=== PATIENT | male | born 1945 | race Caucasian/White ===

== ENCOUNTER 2017-04-08 06:23 | Day surgery (SDC) | payer OTHER ==
[~2017-04-08] VITALS: Ht 180.3 cm; Wt 88.0 kg
[~2017-04-08 06:23] MED LIST: ALPR0.255 PO; AMLO10TA2 PO; CLON1TAB4 PO; HYDR-3989 PO; LISI-621 PO; MELO-273 PO; METO50TA5 PO; SERT100T PO; WARF3TAB6 PO
--- OUTSIDE RECORDS SUMMARY | 2017-04-08 06:26 | XMS REPORT ---
Author Author Zeyad Becerra Organization [facility] Address [address] [place] [address] Care Team Providers Care Pumper Head Name Role Phone Hernan, Zeyad Unavailable [phone] PROBLEMS Type Condition ICD9-CM Code [id number] Code Onset Dates Condition Status SNOMED Code Problem Carotid arterial disease I77.9 Active 033291101 Problem CVA (cerebral vascular accident) I63.9 Active 716435123 Problem HTN (hypertension) I10 Active 24094442 Problem Episodic atrial fibrillation I48.0 Active 00701974 Problem COPD (chronic obstructive pulmonary disease) J44.9 Active 88710334 Problem Chronic anticoagulation Z79.01 Active 545941826 Problem Dyslipidemia (high LDL; low HDL) E78.4 Active [id number] ALLERGIES Unknown Allergies SOCIAL HISTORY No smoking Hx information available PLAN OF CARE VITAL SIGNS MEDICATIONS Unknown Medications RESULTS No Results PROCEDURES No Known procedures IMMUNIZATIONS No Known Immunizations
--- OUTSIDE RECORDS SUMMARY | 2017-04-08 06:27 | XMS REPORT | Continuity of Care Document ---
Author Author [facility] Organization [facility] Address Unknown Phone Unavailable Allergies Active Description Code Type Severity Reaction Onset Reported/Identified Relationship to Patient Clinical Status Yes No Known Allergies [id number] Unknown N/A 02/11/2017 Medications Medication Packaging Start Date Stop Date Route Dosage Sig DOCUSATE SODIUM 02/12/2017 02/13/2017 BIDPRN ACETAMINOPHEN 02/12/2017 02/13/2017 Q4HPRN ACETAMINOPHEN 02/12/2017 02/13/2017 Q4HPRN ALUM-MAG HYDROXIDE-SIMETH 02/12/2017 02/13/2017 Q4HPRN MAGNESIUM HYDROXIDE 02/12/2017 02/13/2017 HSPRN HYDROCODONE-ACET 5-325MG 02/12/2017 02/13/2017 Q3HPRN ONDANSETRON HCL 02/12/2017 02/13/2017 Q6HPRN SODIUM CHLORIDE 0.9 % 02/12/2017 02/13/2017 PRNIV SODIUM CHLORIDE 0.9% 02/12/2017 02/13/2017 PRNIV METOCLOPRAMIDE 02/12/2017 02/13/2017 Q6HPRN MORPHINE 02/12/2017 02/13/2017 [id number] HYDROcodone-ACET 5-325MG 02/12/2017 02/12/2017 Q4-6HPRN ALPRAZolam 02/12/2017 02/13/2017 TIDPRN PRAMIPEXOLE 02/12/2017 02/13/2017 Q8HPRN GLYCOPYRROLATE 02/12/2017 02/12/2017 ONCE LISINOPRIL 02/12/2017 02/13/2017 QD MELOXICAM 02/12/2017 02/13/2017 BID DOCUSATE SODIUM 02/12/2017 02/13/2017 QD METOPROLOL TARTRATE 02/12/2017 02/13/2017 BID amLODIPine 02/12/2017 02/13/2017 QD ASPIRIN, BUFFERED 02/12/2017 02/13/2017 QD buPROPion HCL 02/12/2017 02/13/2017 BID ALBUMIN, HUMAN 5% 250ML 02/12/2017 02/12/2017 ONCE CEFAZOLIN 02/12/2017 02/13/2017 Q8H clonazePAM 02/12/2017 02/13/2017 PM CLOPIDOGREL 02/12/2017 02/13/2017 HS CEFAZOLIN 02/13/2017 02/13/2017 ONCEPRN Problems Date Dx Coded Attending Type Code Diagnosis Diagnosed By 02/08/2017 TOLU BILLY P I65.23 OCCLUSION AND STENOSIS OF BILATERAL CAROTID ARTERIES TOLU BILLY 02/08/2017 TOLU BILLY S Z86.73 PERSONAL HISTORY OF TRANSIENT ISCHEMIC ATTACK ( TIA), AND CEREBRAL INFARCTION WITHOUT RESIDUAL DEFICITS TOLU BILLY Procedures Results Test Result Range CBC WITH DIFF (REFLEX) - 02/12/17 08:35 WBC - WHITE CELL COUNT 6.4 X10(3) 4.5-11.0 RBC - RED CELL COUNT 4.60 X10(6) 4.60-6.20 PLATELET COUNT 141 X10(3) 150-450 HEMOGLOBIN 15.4 g/dl 13.5-18.0 HEMATOCRIT 44.0 % 40.0-54.0 MCV 95.7 fL 80.0-96.0 MCH 34 pg 27-31 MCHC 35.0 % 32.0-36.0 LYMPHS % 20-45 MONOS % 0-15 SEGS % 40-80 BANDS % 0-5 EOS % 0-3 BASOS % N/A-N/A METAS MYELOS PROMYELO BLASTS NRBC N/A-5 ANISO POIK MACROCYTIC MICROCYTIC HYPO POLY OVALO MANUAL DIFFERENTIAL HEADING M.DIFF REACT LYM % 0-1 RBC MORP WBC MORP PLT MORP BMP - BASIC METABOLIC PANEL - 02/12/17 08:35 GLUCOSE 96 mg/dl 74-106 BUN 16 mg/dl 7-18 CREATININE 1.38 mg/dl 0.70-1.30 eGFR 51 mL/min >60 SODIUM (NA) 138 mEq/L 136-146 POTASSIUM, BLOOD 4.3 mEq/L 3.5-5.1 CHLORIDE 106 mEq/L 98-107 CO2 (BICARBONATE) 28 mEq/L 21-32 CALCIUM 8.9 mg/dl 8.5-10.1 INR (PROTIME) - 02/12/17 08:35 INR 0.98 0.90-1.40 HOLD SPECIMEN FOR BLOOD BANK - 02/12/17 08:35 HOLD SPECIMEN FOR BLOOD BANK ARC URINALYSIS W/MICROSCOPIC - 02/12/17 09:10 COLOR DK STR STRAW CLARITY/APPEARANCE CLEAR CLEAR BILIRUBIN URINE HEADER Interpret positive Bilirubin results with caution. Large amounts of urobilinogen in the urine affect the color change of the bilirubin test (false positive). Highly basic urines (pH>9) might show false-positive readings on bilirubin. False-positive readings are obtained during treatment with imipenem, penicillin, and p- aminosalicyclic acid. UROBILINOGEN (URINALYSIS) 1 mg/dL NORMAL YEAST (URINALYSIS) per hpf UA MICRO VOL HEADER Microscopic reference ranges are based on 12ml total spun volume. CRYSTALS (URINALYSIS) per hpf SP GRAV 1.020 1.005-1.025 PH 5.0 6.0-8.0 LEUKO NEG NEG NITRITE NEG NEG PROTEIN NEG. NEG. GLUCOSE NORMAL NORMAL KETONES NEG NEG BILIRUBIN NEG NEG BLOOD NEG NEG WBC 0-2 per hpf NEG. RBC NEG per hpf NEG EPITH 0-2 per hpf NEG. BACTERIA MODERATE per hpf NEG. MUCUS PRESENT per hpf NEG. HYAL CAST per lpf NEG. GRAN CAST per lpf SPUN VOLUME 12 ml Encounters ACCT No. Visit Date/Time Discharge Status Pt. Type Provider Facility Loc./Unit Complaint [id number] 02/12/2017 07:58:00 02/13/2017 10: 50:00 DIS Inpatient [facility] [address] CAROTID STENOSIS [id number] 01/28/2017 13:18:00 01/28/2017 13: 18:00 DIS Outpatient [facility] CEREBRAL INFARCTION DUE TO CAROTID STENOSIS
--- OUTSIDE RECORDS SUMMARY | 2017-04-08 06:27 | XMS REPORT | Referral Summary ---
Author Author [facility] Organization [facility] Address Unknown Phone Unavailable Care Team Providers Care Life Skills Specialist Name Role Phone Sharlene Bethea Primary Care Physician [phone] Encounter VC Date(s): 11/04/16 - 11/07/16 [facility] [address] [place] [address] Discharge Disposition: 62-Inpatient Rehab Facility Attending Physician: Fercho Lake MD Admitting Physician: Fercho Lake MD Vital Signs Most recent to 1 oldest [Reference Range]: Temperature Temporal 36.4 degC Artery [36.3-37.8 (11/07/16 12:00 PM) degC] Peripheral Pulse 62 bpm Rate [60-100 bpm] (11/07/16 8:26 AM) Heart Rate Monitored 64 bpm [60-100 bpm] (11/07/16 12:00 PM) Respiratory Rate 11 br/min [14-20 br/min] *LOW* (11/07/16 12:00 PM) Blood Pressure 156/96 mmHg [90-140/60-90 mmHg] *HI* (11/07/16 12:00 PM) Mean Arterial 105 mmHg Pressure, Cuff (11/07/16 12:00 PM) SpO2 98 % (11/07/16 12:00 PM) Problem List Condition Effective Dates Status Health Status Informant Acute Active pain(Confirmed) Atrial fibrillation, Active patient new onset(Confirmed) Anxiety(Confirmed) Active patient At risk of pressure Active sore(Confirmed) Chronic back Active patient pain(Confirmed) COPD (chronic Active patient obstructive pulmonary disease)(Confirmed) Middle cerebral Active patient artery embolism(Confirmed) GERD Active patient (gastroesophageal reflux disease)(Confirmed) Impaired 11/07/16 Active mobility(Confirmed)1 Mastoiditis of both Active patient sides(Confirmed) Insomnia(Confirmed) Active patient Smoker(Confirmed) Active patient Tissue perfusion Active alteration(Confirmed )2 Restless leg Active patient syndrome(Confirmed) 1Problem added by Discern Expert 2Problem added automatically by system based on initiation of Tissue Perfusion Cerebral Plan of Care Allergies, Adverse Reactions, Alerts No Known Medication Allergies Medications acetaminophen 325 mg oral tablet 650 mg 2 tabs, Oral, q4hr, Pain Mild (1-3), 0 Refill(s) Start Date: 11/07/16 Status: Ordered Augmentin 875 mg-125 mg oral tablet Oral, BID, 0 Refill(s) Start Date: 11/07/16 Stop Date: 11/19/16 Status: Ordered buPROPion 24 hour extended release 150 mg, Oral, q24hr, 0 Refill(s) Start Date: 11/04/16 Status: Ordered calcium carbonate 500 mg (200 mg elemental calcium) oral tablet, chewable 500 mg 1 tabs, Oral, TID, GERD/Heartburn, 0 Refill(s) Start Date: 11/07/16 Status: Ordered carboxymethylcellulose 1 drops, Eye-Both, QID, 0 Refill(s) Start Date: 11/04/16 Status: Ordered Colace 100 mg oral capsule 100 mg 1 caps, Oral, BID, 0 Refill(s) Start Date: 11/07/16 Status: Ordered Combivent Respimat CFC free 20 mcg-100 mcg/inh inhalation aerosol 1--3 puffs, Inhalation, q2hr (scheduled), Bronchospasms, 0 Refill(s) Start Date: 11/07/16 Status: Ordered cyclobenzaprine 10 mg, Oral, BID, as needed for muscle spasm, 0 Refill(s) Start Date: 11/04/16 Status: Ordered Dulcolax Laxative 5 mg oral delayed release tablet 5 mg 1 tabs, Oral, Daily, Constipation, 0 Refill(s) Start Date: 11/07/16 Status: Ordered Lipitor 80 mg oral tablet 80 mg 1 tabs, Oral, Bedtime (once a day), 0 Refill(s) Start Date: 11/07/16 Status: Ordered Lovenox 40 mg 0.4 mL, SubCutaneous, Daily, 0 Refill(s) Start Date: 11/07/16 Status: Ordered meloxicam 7.5 mg oral tablet 7.5 mg 1 tabs, Oral, BIDWM, 0 Refill(s) Start Date: 11/07/16 Status: Ordered Metoprolol Tartrate 25 mg, Oral, BID, 0 Refill(s) Start Date: 11/04/16 Status: Ordered MiraLax 17 g 1 packets, Oral, Daily, Constipation, 0 Refill(s) Start Date: 11/07/16 Status: Ordered [place] 5 mg-325 mg oral tablet 1 tabs, Oral, TID, as needed for pain, # 30 tabs, 0 Refill(s) Start Date: 11/07/16 Stop Date: 11/17/16 Status: Ordered Norvasc 10 mg oral tablet 10 mg 1 tabs, Oral, Daily, 0 Refill(s) Start Date: 11/07/16 Status: Ordered Plavix 75 mg oral tablet 75 mg 1 tabs, Oral, Daily, 0 Refill(s) Start Date: 11/07/16 Status: Ordered pramipexole 0.5 mg, Oral, Bedtime (once a day), 0 Refill(s) Start Date: 11/04/16 Status: Ordered ramelteon 8 mg oral tablet 16 mg 2 tabs, Oral, Bedtime (once a day), 0 Refill(s) Start Date: 11/07/16 Status: Ordered Senokot S 50 mg-8.6 mg oral tablet 1 tabs, Oral, Daily, Constipation, 0 Refill(s) Start Date: 11/07/16 Status: Ordered Zofran 4 mg oral tablet 4 mg 1 tabs, Oral, q6hr, Nausea, 0 Refill(s) Start Date: 11/07/16 Status: Ordered Results Hematology Most recent to 1 oldest [Reference Range]: WBC [4.8-10.8 9.2 10*3/uL 10*3/uL] (11/07/16 5:04 AM) RBC [4.60-6.20] 5.01 (11/07/16 5:04 AM) Hgb [14.0-18.0 16.1 gm/dL gm/dL] (11/07/16 5:04 AM) Hct [42.0-52.0 %] 48.3 % (11/07/16 5:04 AM) MCV [82.0-99.0 fL] 96.4 fL (11/07/16 5:04 AM) MCH [27.0-32.0 pg] 32.1 pg *HI* (11/07/16 5:04 AM) MCHC [32.0-36.0 33.3 gm/dL gm/dL] (11/07/16 5:04 AM) RDW [11.5-14.5 %] 13.7 % (11/07/16 5:04 AM) Platelet [150-400 142 10*3/uL 10*3/uL] *LOW* (11/07/16 5:04 AM) MPV [9.4-12.3 fL] 10.7 fL (11/07/16 5:04 AM) Chemistry Most recent to 1 oldest [Reference Range]: Sodium Lvl [136-144 139 mEq/L mEq/L] (11/07/16 5:04 AM) Potassium Lvl 4.1 mEq/L [3.6-5.1 mEq/L] (11/07/16 5:04 AM) Chloride [99-109 111 mEq/L mEq/L] *HI* (11/07/16 5:04 AM) CO2 [22-32 mEq/L] 22 mEq/L (11/07/16 5:04 AM) AGAP [3-20] 6 (11/07/16 5:04 AM) BUN [4-20 mg/dL] 14 mg/dL (11/07/16 5:04 AM) Glucose Lvl [70-100 99 mg/dL mg/dL] (11/07/16 5:04 AM) Creatinine Lvl 1.26 mg/dL [0.64-1.27 mg/dL] (11/07/16 5:04 AM) eGFR [>60] 57 1 *ABN* (11/07/16 5:04 AM) Calcium Lvl 8.7 mg/dL [8.6-10.0 mg/dL] (11/07/16 5:04 AM) Albumin Lvl [3.5-4.8 3.2 gm/dL gm/dL] *LOW* (11/07/16 5:04 AM) Magnesium Lvl 1.8 mg/dL [1.8-2.5 mg/dL] (11/07/16 5:04 AM) Phosphorus [2.4-4.7 3.4 mg/dL 2 mg/dL] (11/07/16 5:04 AM) Osmolality [275-300 298 mOsm/kg mOsm/kg] (11/05/16 5:52 AM) Blood Glucose, 96 mg/dL Capillary [70-100 (11/05/16 11:39 AM) mg/dL] Chol [0-200 mg/dL] 167 mg/dL (11/05/16 5:52 AM) Trig [0-150 mg/dL] 68 mg/dL (11/05/16 5:52 AM) HDL [>40 mg/dL] 38 mg/dL *ABN* (11/05/16 5:52 AM) LDL [0-100 mg/dL] 115 mg/dL *HI* (11/05/16 5:52 AM) VLDL Cholesterol 14 mg/dL [0-30 mg/dL] (11/05/16 5:52 AM) Cardiac Risk 4.4 [0.0-5.7] (11/05/16 5:52 AM) TSH with Reflex Free 1.56 T4 [0.35-5.50] (11/05/16 5:52 AM) Hgb A1c [4.1-5.6 %] 6.1 % *HI* (11/05/16 5:52 AM) eAvg Glucose 128.4 mg/dL (11/05/16 5:52 AM) 1Result Comment: Multiply eGFR results by 1.21 for race. 2Result Comment: High dosages of liposomal Amphotericin B (AmBisome) therapy or other drug preparations that use a liposomal envelope to facilitate drug delivery may cause falsely elevated results for phosphorus. Toxicology Most recent to 1 oldest [Reference Range]: U Amphetamine Scrn Negative (11/05/16 1:37 AM) U Cocaine Scrn Negative (11/05/16 1:37 AM) U Cannab Scrn Negative (11/05/16 1:37 AM) U Opiate Scrn Negative (11/05/16 1:37 AM) U PCP Scrn Negative (11/05/16 1:37 AM) U Benzodiazepine Positive Scrn *ABN* (11/05/16 1:37 AM) U Barbiturate Scrn Negative (11/05/16 1:37 AM) Methadone Lvl Negative (11/05/16 1:37 AM) Tricyclics Not Detected 1 (11/05/16 1:37 AM) 1Result Comment: Cut-off concentrations: Amphetamines: 1000 ng/mL Cocaine: 300 ng/mL Cannabinoid: 50 ng/mL Opiate: 300 ng/mL Phencyclidine (PCP): 25 ng/mL Benzodiazepine: 200 ng/mL Barbiturate: 200 ng/mL Methadone: 300 ng/mL Tricyclic: 300 ng/mL The urine drug screen assays are qualitative screens. A more specific GC/MS method must be performed to obtain a confirmed analytical result. Unconfirmed screening results must not be used for non-medical purposes(e.g. employment or legal testing) Urinalysis Most recent to 1 oldest [Reference Range]: UA Color Yellow (11/05/16 1:36 AM) UA Appear Clear (11/05/16 1:36 AM) UA pH [5.0-8.0] 5.0 (11/05/16 1:36 AM) UA Leuk Est Negative [Negative] (11/05/16 1:36 AM) UA Nitrite Negative [Negative] (11/05/16 1:36 AM) UA Protein Negative [Negative] (11/05/16 1:36 AM) UA Glucose Negative [Negative] (11/05/16 1:36 AM) UA Ketones Negative [Negative] (11/05/16 1:36 AM) UA Urobilinogen Negative [<1.0] (11/05/16 1:36 AM) UA Bili [Negative] Negative (11/05/16 1:36 AM) UA Blood [Negative] Negative (11/05/16 1:36 AM) UA Spec Grav 1.020 [1.003-1.030] (11/05/16 1:36 AM) Type Clean Catch (11/05/16 1:36 AM) Immunizations No data available for this section Procedures Procedure Date Related Diagnosis Body Site Cholecystectomy Social History Social History Type Response Smoking Status Current every day smoker; Tobacco use per day: 1/2 pack or more Assessment and Plan No data available for this section
[2017-04-08 06:35] VITALS: Ht 180.3 cm; Wt 88.0 kg
[2017-04-08 06:36] VITALS: BP 146/80; PULSE 52; RESP 16; TEMP 97.9; O2SAT 96
[2017-04-08] MEDS ORDERED: LIDOCAINE 1% (10mg/ml) 2ml SDV INJ ONE (07:00)
[2017-04-08] MEDS ORDERED: LR 1,000 ML IV SCH (07:00)
[2017-04-08 07:12] LABS: INR 1.02 (0.77-1.03); PROTHROMBIN TIME 11.2 SEC (9.48-12.52)
[2017-04-08] MEDS ORDERED: MIDAZOLAM 2mg/2ml INJECTION ONE (07:28)
[2017-04-08] MEDS ORDERED: FENTANYL 100mcg/2ml INJECTION ONE (07:29)
[2017-04-08] MEDS ORDERED: PROPOFOL 500mg 50 ML IV ONE (07:29)
[2017-04-08] MEDS ORDERED: LIDOCAINE VISCOUS 2% Oral Soln 15ml UD ONE (07:31)
[2017-04-08] MEDS ORDERED: GLYCOPYRROLATE 0.4mg/2ml INJECTION ONE (07:44)
[2017-04-08] MEDS ORDERED: EPHEDRINE SULFATE 50mg/ml INJECTION ONE (07:55)
--- NOTE | 2017-04-08 08:25 | ANESPREOP ---
Anesthesia Record Date and Time DATE: 04/08/17 TIME: 704 Proposed Surgical Procedure COLONOSCOPY Allergies: Coded Allergies: No Known Allergies (Unverified , 04/08/17) Ht/Wt/BMI Height: 5 ' 11.00 " Weight: 88.000 kg BMI: 27.1 kg/m2 Vital Signs Date Time Temp Pulse Resp B/P Pulse Ox O2 Delivery O2 Flow Rate FiO2 04/08/17 06:36 97.9 52 16 146/80 96 Room Air Medications Inpatient Medications Current Medications Medications (Trade) Dose Ordered Sig/Vamsi Start Time Stop Time Status Last Admin Dose Admin Lactated Ringer's (Lactated Ringers) 1,000 ml @ 50 mls/hr Q20H 04/08/17 07:00 04/08/17 06:56 50 MLS/HR Alprazolam (Alprazolam) 0.25 Mg Tablet, 1 TAB PO DAILY PRN for ANXIETY, ( Reported) Last Taken: on 04/07/17 1800 Amlodipine Besylate (Amlodipine Besylate) 10 Mg Tablet, 1 TAB PO DAILY, (Reported) Last Taken: on 04/07/17 0900 Clonazepam (Clonazepam) 1 Mg Tablet, 1 TAB PO DAILY, (Reported) Last Taken: on 04/07/17 2359 Hydrocodone/Apap ([place] 5-325 Tablet) 5-325 Tablet, 1 TAB PO TID PRN for PAIN, (Reported) Last Taken: on 04/07/17 0900 Lisinopril (Lisinopril) 20 Mg Tablet, 0.25 TAB PO DAILY, (Reported) Last Taken: on 04/07/17 1800 Meloxicam (Meloxicam) 7.5 Mg Tablet, 1 TAB PO BID, (Reported) Last Taken: on 04/07/17 1800 Metoprolol Tartrate (Metoprolol Tartrate) 50 Mg Tablet, 0.5 TAB PO DAILY, (Reported) Last Taken: on 04/08/17 0530 Sertraline (Zoloft) 100 Mg Tablet, 0.5 TAB PO DAILY, (Reported) Last Taken: on 04/06/17 Warfarin Sodium (Warfarin Sodium) 3 Mg Tablet, 1 TAB PO DAILY, (Reported) Last Taken: on 04/01/17 Currently on Beta Angelina: Yes Beta Angelina Last Taken: METOPROLOL 04/08/17 AT 0530 Medical/Surgical History Anesthesia PMH: Reports: *Hypertension, Arthritis (KNEES), COPD (PER H&P), CVA/ Stroke/TIA (OCT 2016 LEFT SIDE WEAKNESS), Clotting Problems (TAKES [place]), Sleep Apnea (DOES NOT WEAR CPAP), Denies: Anesthesia Reactions (NO AIRWAY ISSUES ), Cancer, Glaucoma, Malignant Hyperthermia Smoking Status: Current every day smoker Has pt. smoked today?: No Use Chewing Tobacco?: No Substance Use Type: does not use Past Surgical History Orthopedic Surgeries: Abdominal Surgeries: Yes - GALLBLADDER, LOWER LEFT HERNIA,BACK-LAMINECTOMY Genitourinary Surgeries: Cardiac Surgeries: Yes - CAROTID ARTERY Endocrine Surgeries: Reproductive Surgeries: Neurological Surgeries: Ear Surgeries: Nose Surgeries: Throat Surgeries: Other Surgeries: Anesthesia Adverse Reactions: FOUND none Family Hx of Anesthesia Advers: none Hx of Motion Sickness: No Pertinent Findings Test 04/08/17 06:46 Prothromb Time International Ratio 1.02 (0.77-1.03) EKG Rhythm: Sinus Bradycardia Physical Exam Respiratory: Lungs clear Cardiovascular: FOUND Regular rate, rhythm Airway Assessment Mallampati Score: II TMD: 3 Fingerbreadths Neck Extension: Fair Teeth: Upper Dentures Overall Assessment: No Airway Concerns ASA: 3 Plan Anesthesia Plan: TIVA Discussion Discussed risks/options/alternatives of anesthesia and questions answered. Patient consents. Nursing pain assessment noted. Present: Spouse Attestation Statement Prior to the delivery of any anesthetic medication, I examined the patient, developed the plan, obtained the patient's consent and discussed the risk and benefits of the procedure with the patient/guardian. TIM BEE CRNA April 08, 2017 08:24
[2017-04-08] MEDS ORDERED: PROPOFOL 200mg 20 ML IV ONE (08:39)
[2017-04-08 09:32] VITALS: BP 135/75; PULSE 53; RESP 14; TEMP 97.3; O2SAT 99
--- NOTE | 2017-04-08 09:44 | GSPOSTPROC ---
Immediate Operative Note DATE: 04/08/17 TIME: 09:42 Postop Diagnosis: Gastric ulcer,colon polyp Surgical Procedure: EGD w/Biopsies, C-scope w/Polypectomy Surgeon: Liv ASA: 3 CHRISTAL VALDEZ MD April 08, 2017 09:44
--- NOTE | 2017-04-08 09:47 | ANESPO ---
Post-Op Note Date 04/08/17 Time: 09:43 Status Pt Participated in Evaluation: Pt participated in person Vital Signs Date Time Temp Pulse Resp B/P Pulse Ox O2 Delivery O2 Flow Rate FiO2 04/08/17 09:32 97.3 53 14 135/75 99 Room Air Respiratory Function: Airway patent Cardiovascular Function: Regular pulse Mental Status: Alert/oriented Pain Level Intensity: 0 Unable to Assess Pain Due To: Medicated/Sleeping Hydration: Taking po fluids Complications during Recovery None apparent Follow-Up Instructions Instructions Per Surgeon TIM BEE CRNA April 08, 2017 09:47
[2017-04-08 09:50] VITALS: BP 126/82; PULSE 53; RESP 16; O2SAT 95
[2017-04-08 10:05] VITALS: BP 145/81; PULSE 51; RESP 18; O2SAT 93
[2017-04-08 10:20] VITALS: BP 151/88; PULSE 52; RESP 18; O2SAT 96
[2017-04-08 10:35] VITALS: BP 161/90; PULSE 52; RESP 16; O2SAT 94
--- NOTE | 2017-04-09 11:04 | OPNOTEF ---
DATE OF OPERATION 04/08/2017 PREOPERATIVE DIAGNOSES 1. History of black stools. 2. Chronic constipation. 3. Positive family history of colon carcinoma. POSTOPERATIVE DIAGNOSES 1. History of black stools. 2. Chronic constipation. 3. Positive family history of colon carcinoma. 4. Large gastric ulcer. 5. Small duodenal ulcer. 6. Duodenal erosions. 7. Large sessile colon polyp. OPERATION Esophagogastroduodenoscopy with biopsies and total colonoscopy with polypectomy and directed submucosal injection of endoscopic marker ink. SURGEON Dr. Peck [facility] CLASS 3 FINDINGS Mucosa appeared normal at the esophagus. There was no distal esophagitis. There were no esophageal erosions or ulcers. The patient does have a large gastric ulcer at the prepyloric area of the antrum. This is an antral gastric ulcer. This appears to be at the lesser curvature side of the stomach. This is a deep ulcer. There was white fibrinous exudate at the base of the ulcer. The stomach otherwise appeared normal. Mucosa at most of the duodenal bulb appeared normal. The patient did have a small duodenal ulcer at the posterior margin of the duodenal bulb. There were also some duodenal erosions around this same area. The gastric ulcer was thought to be the most likely source for upper gastrointestinal tract bleeding leading to black stools. There were no colon or rectal tumors. The patient did have a large sessile polyp at the colon. The patient does have a long redundant colon with a lot of large loops. This did cause looping of the colonoscope as the colonoscope was being inserted. The polyp initially appeared to be located at 150 cm proximal to the anal verge as the colonoscope was inserted. The polyp was located at 65 cm proximal to the anal verge as the colonoscope was withdrawn. There is discrepancy due to the redundancy of the colon and looping of the colon. It is thought that the polyp was probably at the distal transverse colon or at the descending colon. This was the only colon polyp which was identified. There were no rectal polyps. There were no colonic angiodysplasia lesions. There was no melanosis coli. There was no inflammatory bowel disease. There was no colonic diverticulosis. DESCRIPTION OF OPERATION The patient was brought to the endoscopy room. The patient was placed on a cart in the endoscopy room. The patient was placed in left lateral recumbent position on the cart. The patient was premedicated with intravenous sedation medication administered by the nurse pot feeder. The Olympus upper GI endoscope was used. The upper GI endoscope was introduced into the esophagus. The upper GI endoscope was advanced down through the esophagus, stomach and into the duodenum. The upper GI endoscope was advanced through the duodenum beyond the level of the duodenal bulb. The upper GI endoscope was then withdrawn back out through the duodenum and through the pylorus into the stomach. The upper GI endoscope was retroflexed and the gastroesophageal junction was viewed from below. The upper GI endoscope was straightened out. The stomach was examined further. Findings throughout all this time were as described above. The endoscopic biopsy forceps was used to obtain a sample of prepyloric pyloric antral gastric mucosa which was submitted for COLE test studies. The endoscopic biopsy forceps was then used to obtain extensive biopsies of the gastric ulcer. These biopsies were submitted for study by the pathologist. The upper GI endoscope was then withdrawn out through the stomach and esophagus and removed from the patient. The patient was kept in left lateral recumbent position on the cart in the endoscopy room. The patient continued to receive intravenous sedation medication administered by the nurse pot feeder. Total colonoscopy was performed. The Olympus colonoscope was used. The colonoscope was introduced into the rectum. The colonoscope was advanced up through the rectum and colon. When the colonoscope had been advanced up to a level 150 cm proximal to the anal verge, a large polypoid structure was seen. This was a large sessile polyp at the colon. This polyp was removed in multiple pieces in piecemeal fashion. All of the pieces were collected and submitted together in one container for study by the pathologist. The colonoscope was then advanced the remainder of the way up through the colon all way up to the cecum. The patient was found at this time to have a long redundant colon. The colonoscope was withdrawn to take out loops and re-advanced with splinting as all this was done. The tip of the colonoscope was eventually able to be advanced all the way up into the cecum. The appendiceal orifice was visualized. The ileocecal valve was visualized. The colonoscope was then withdrawn out through the colon. The colonoscope was withdrawn all the way out through the colon down to a level 30 cm proximal to the anal verge without visualization of the polypectomy site. The colonoscope was therefore re-advanced all way back out through the colon. The colonoscope was advanced up through the colon and withdrawn back out through the colon several times looking for the polypectomy site. The plan was to identify the polypectomy site so that the site could be marked with submucosal injection of endoscopic marker ink to help identify this site later. After the colonoscope had been advanced up back and forth through the colon several times looking for the polypectomy site, the polypectomy site was eventually identified again as the colonoscope was being withdrawn out through the colon at one of these times. The polypectomy site was identified at this time at a level 65 cm proximal to the anal verge. Directed submucosal injection was then performed just distal to the polypectomy site. The patient did have a SPOT endoscopic marking ink injected submucosally at a level just distal to the polypectomy site to help with later identification of this site. The endoscopic marker ink was injected submucosally at the colon at a level inferior to the polypectomy site in three separate locations around the circumference of the colon. It was thought that this would help with identification of this large polypectomy site in the future. The colonoscope was then withdrawn the remainder of the way out through the colon and rectum and removed from the patient. Digital rectal examination was performed. Findings throughout procedure were as described above. The patient did continue to receive intravenous sedation medication administered by the nurse pot feeder throughout the operation. The patient did tolerate the operation well. GUERITA
== END 2017-04-08 11:00 | disposition home or self-care (01) ==
LOC: SCU 06:23
PROVIDERS: ATTEND Surgery
DX: K25.9 Gastric ulcer, unspecified as acute or chronic, without hemorrhage or perforation (principal); K26.9 Duodenal ulcer, unspecified as acute or chronic, without hemorrhage or perforation; K63.5 Polyp of colon; Q43.8 Other specified congenital malformations of intestine; R19.5 Other fecal abnormalities; K59.09 Other constipation; Z80.0 Family history of malignant neoplasm of digestive organs; F17.210 Nicotine dependence, cigarettes, uncomplicated; I48.2 Chronic atrial fibrillation; I10 Essential (primary) hypertension; G89.29 Other chronic pain; M54.5 Low back pain; E78.5 Hyperlipidemia, unspecified; J43.9 Emphysema, unspecified; G25.81 Restless legs syndrome; G47.00 Insomnia, unspecified; K42.9 Umbilical hernia without obstruction or gangrene; Z79.01 Long term (current) use of anticoagulants; Z79.1 Long term (current) use of non-steroidal anti-inflammatories (NSAID); Z79.899 Other long term (current) drug therapy
CPT/HCPCS: 36415; 85610; 87081